=== PATIENT | female | born 1960 | race Caucasian/White ===

== ENCOUNTER 2018-06-28 09:38 | Outpatient (CLI) | payer BC | END 2018-06-28 09:39 | disposition home or self-care (01) | LOC: DTY/OP 09:38 | PROVIDERS: ATTEND Surgery | DX: E66.01 Morbid (severe) obesity due to excess calories (principal) | CPT/HCPCS: 97802 ==

== ENCOUNTER 2018-09-25 11:00 | Inpatient (IN) | payer BC ==
[2018-09-29 14:48] VITALS: BMI 58.1
[2018-10-04] MEDS ORDERED: Heparin 5,000 UNITS/ML VIAL ONE (06:23)
[2018-10-04] MEDS ORDERED: Bupivacaine/Epinephrine 0.25% 30 ML VIAL ONE ×2 (06:34→06:49)
[2018-10-04] MEDS ORDERED: Fentanyl 250 MCG/5 ML VIAL ONE (06:51)
[2018-10-04] MEDS ORDERED: Famotidine/PF 20 mg/2ml Vial ONE (06:51)
[2018-10-04] MEDS ORDERED: Midazolam HCl 2 mg/2 ml Vial ONE (07:23)
[2018-10-04] MEDS ORDERED: Morphine Sulfate 2 MG/ML SYRINGE SLOW IVP PRN (08:30)
[2018-10-04] MEDS ORDERED: Promethazine HCl 25 MG/ML VIAL IM PRN ×3 (08:30→09:08)
[2018-10-04] MEDS ORDERED: PACU-Morphine 4MG/ML VIAL SLOW IVP PRN (08:30)
[2018-10-04] MEDS ORDERED: Meperidine HCl/PF 25 MG/ML VIAL SLOW IVP PRN (08:30)
[2018-10-04] MEDS ORDERED: HYDROmorphone 2 MG/ML VIAL SLOW IVP PRN (08:30)
[2018-10-04] MEDS ORDERED: Promethazine HCl 25 MG/ML VIAL SLOW IVP PRN (08:30)
[2018-10-04] MEDS ORDERED: Ondansetron HCl/PF 4 MG/2 ML Vial IVP PRN (08:30)
[2018-10-04] MEDS ORDERED: HYDROmorphone 2 MG/ML VIAL ONE (08:37)
[2018-10-04] MEDS ORDERED: Fentanyl 100 MCG/2 ML VIAL ONE (08:37)
[2018-10-04] MEDS ORDERED: Promethazine HCl 25 MG/ML VIAL ONE ×2 (08:37→10:31)
[2018-10-04] MEDS ORDERED: Insulin Regular 300 UNITS/3 ML VIAL SC PRN (08:39)
[2018-10-04] MEDS ORDERED: Dextrose 50% Abboject 50 ML SYRINGE SLOW IVP PRN (08:39)
[2018-10-04] MEDS ORDERED: Ondansetron PF 4 MG/2 ML Vial IVP PRN ×2 (08:39→09:08)
[2018-10-04] MEDS ORDERED: Hydrocodone-Acetamin 15 ML UDCUP PO PRN (08:39)
[2018-10-04] MEDS ORDERED: diphenhydrAMINE 50 MG/ML VIAL IVP PRN ×2 (08:39→09:08)
[2018-10-04] MEDS ORDERED: Dextrose 5% in Water 1,000 ML IV PRN (08:39)
[2018-10-04] MEDS ORDERED: hydrALAZINE 20 MG/ML VIAL SLOW IVP PRN (08:39)
[2018-10-04] MEDS ORDERED: Naloxone HCl 0.4 mg/ml Vial IV PRN (09:08)
[2018-10-04] MEDS ORDERED: Ketorolac Tromethamine 30 MG/ML VIAL IVP PRN (09:08)
[2018-10-04] MEDS ORDERED: diphenhydrAMINE 25 MG CAP PO PRN (09:08)
[2018-10-04] MEDS ORDERED: fentaNYL Citrate/PF 2,000 MCG in Sodium Chloride 0.9% 60 ML IV PRN (09:08)
[2018-10-04] MEDS ORDERED: Zolpidem Tartrate 5 MG TAB PO PRN (09:08)
[2018-10-04] MEDS ORDERED: diphenhydrAMINE 50 MG/ML VIAL IM PRN (09:08)
[2018-10-04] MEDS ORDERED: Communication Order-Pharmacy FS SCH (09:15)
[2018-10-04] MEDS ORDERED: Sodium Chloride 0.9% (PF) 10 ML VIAL FS PRN (10:02)
[2018-10-04] MEDS: 1/2 NS w/KCL 20 mEq 1,000 ML IV SCH ×2 (12:26→21:00)
[2018-10-04] MEDS: Pantoprazole 40 MG VIAL IVP SCH (12:26)
--- NOTE | 2018-10-04 14:08 | HP ---
CHIEF COMPLAINT: Morbid obesity. HISTORY OF PRESENT ILLNESS: The patient is a 58-year-old female, who has been overweight for many years that she has attempted multiple weight loss programs without success. She is here for sleeve gastrectomy. PAST MEDICAL HISTORY: Significant for sleep apnea, hypertension. PAST SURGICAL HISTORY: She has had hysterectomy and knee surgery. MEDICATIONS: Include 1. Potassium. 2. Metformin. 3. Atorvastatin. 4. Lasix. FAMILY HISTORY: Both parents are . Mother had diabetes. SOCIAL HISTORY: Former smoker. No current tobacco. No alcohol. ALLERGIES: SHE HAS AN ALLERGY TO VICODIN. PHYSICAL EXAMINATION: VITAL SIGNS: Height 67, weight 365, body mass index 57.16, well-developed, well-nourished female, in no apparent distress. Alert and orient x3. HEENT: Pupils equal, round, and reactive. Extraocular motor intact. Pharynx clear. NECK: Supple. No thyroid masses. No carotid bruits. LUNGS: Clear. HEART: Regular rate and rhythm. NEUROLOGICAL: No focal defect. BREASTS: There are no palpable breast masses. No lymphadenopathy. There is some submammary inflammation. ABDOMEN: Soft, nontender. Good bowel sounds. No palpable masses or hernias. BACK: No spinal tenderness. She has a deep midline crease. EXTREMITIES: Warm, well perfused with 1+ edema. ASSESSMENT: Morbid obesity with comorbidities. PLAN: Laparoscopic sleeve gastrectomy. CONSENT: Discussed planned procedure as well as risk of bleeding, infection, injury to esophagus, spleen, loops of bowel, need to open, leakage from staple line. She understands and gives informed consent. Job ID: [id number]
[2018-10-04] MEDS ORDERED: PROPOFOL 200 MG/20 ML VIAL ONE (15:12)
[2018-10-04] MEDS ORDERED: Ondansetron PF 4 MG/2 ML Vial ONE (15:12)
[2018-10-04] MEDS ORDERED: Lidocaine 1% PF 5 ML VIAL ONE (15:12)
[2018-10-04] MEDS ORDERED: Glycopyrrolate 0.2 MG/ML 5 ML SYRINGE ONE (15:12)
[2018-10-04] MEDS ORDERED: Rocuronium Bromide 10 MG/ML (10ML VIAL) ONE (15:12)
[2018-10-04] MEDS ORDERED: Dexamethasone 20 MG/5 ML VIAL ONE (15:12)
[2018-10-04] MEDS: CEFAZOLIN 2 GM in Premix Bag 1 BAG IVPB SCH ×2 (15:42→23:46)
[2018-10-05 05:06] LABS: #Lymphocytes 1.1 thou/uL (1.20-3.40); #Monocytes 0.8 thou/uL (0.11-0.59); #Neutrophils 6.3 thou/uL (1.40-6.50); %Basophils 0.5 % (0.0-1.0); %Eosinophils 0.1 % (0.0-10.0); %Lymphocytes 13.5 % (21.0-51.0); %Monocytes 9.7 % (0.0-10.0); %Neutrophils 76.2 % (42.0-75.0); Hemoglobin 13.5 g/dL (12.0-16.0); Mean Corpuscular HGB CONC 32.9 g/dL (32.0-36.0); Mean Corpuscular Hemoglobin 29.7 pg (27.0-31.0); Mean Corpuscular Volume 90.5 fL (78.0-98.0); Mean Platelet Volume 8.8 fL (7.4-10.4); Platelet Count 165 thou/uL (130-400); RBC Distribution Width 12.9 % (11.5-14.5); Red Blood Cell (RBC) Count 4.55 mill/uL (4.20-5.40); White Blood Cell (WBC) Count 8.2 thou/uL (4.8-10.8)
[2018-10-05 05:27] LABS: Anion Gap 12 mmol/L (10-20); BUN (Urea Nitrogen) 10 mg/dL (9.8-20.1); Calc. Creatinine Clearance 185 mL/min (70-130); Calcium 9.5 mg/dL (7.8-10.44); Carbon Dioxide 24 mmol/L (22-29); Chloride 107 mmol/L (98-107); Estimated GFR-MDRD 67; Glucose 110 mg/dL (70-105); Sodium 138 mmol/L (136-145)
[2018-10-05] MEDS: 1/2 NS w/KCL 20 mEq 1,000 ML IV SCH (05:35)
[2018-10-05] MEDS ORDERED: Enoxaparin Sodium 40 MG/0.4 ML SYRINGE SC SCH ×2 (06:00→09:00)
--- NOTE | 2018-10-05 09:38 | RAD ---
Exam: UPPER GI WITH NO AIR: HISTORY: Postop gastric bypass with vertical sleeve Fluoroscopy time 0.3 minutes. Dose 82.59 mGy FINDINGS: Contrast media passed through the postoperative stomach. No evidence for extravasation. IMPRESSION: Unremarkable post gastric sleeve study. Transcribed Date/Time: 10/05/2018 9:45 AM
--- NOTE | 2018-10-05 09:54 | OP ---
DATE OF PROCEDURE: 10/04/2018 PREOPERATIVE DIAGNOSIS: Morbid obesity. PROCEDURES PERFORMED: Laparoscopic sleeve gastrectomy, esophagogastroscopy. INDICATIONS: This is a 58-year-old female, morbidly obese, who has attempted multiple weight loss programs without success. FINDINGS: A 38-Citizen [place] bougie used. DESCRIPTION OF PROCEDURE: After informed consent was obtained, the patient was taken to the operating room, given general endotracheal anesthesia, placed in the supine position. Abdomen was prepped and draped in usual fashion. Local anesthesia infiltrated subcutaneously and deep, and a 12 mm incision was performed approximately 8 inches above the xiphoid slightly to the left. Veress needle inserted. Drop test performed. Pneumoperitoneum was created to a volume of 2 L of carbon dioxide. Utilizing a bladeless 12 mm trocar and 0-degree laparoscope, direct visual entry in the abdominal cavity was performed. Pneumoperitoneum was then created to a pressure of 15 mmHg and the patient was placed in steep reverse Trendelenburg position. Beth liver retractor inserted and left lobe of liver retracted superiorly. The pylorus was identified, and a 12 mm port placed on the right beneath it and two 12s placed in the left subcostal. The omentum was taken off the greater curvature 5 cm from the pylorus utilizing the LigaSure. Short gastrics divided with LigaSure. Left crura defined with LigaSure. A 38-Citizen [place] bougie was inserted and directed into the antrum. The linear 60 mm green load stapler used to divide the antrum to the bougie, a gold load used along the bougie, and a series of blues through the angle of His. Intraoperative endoscopy was then performed. The video endoscope inserted under direct vision and advanced into the sleeve. The staple line inspected. There was no bleeding. Staple line then tested by inflating the new stomach with pressurized air under water, there was no air leak. Stomach decompressed. Scope removed. The remnants of stomach removed from the abdomen through the left lateral port site. The fascia was closed with 0 Vicryl suture and the GraNee needle. Trocars and retractors removed. Skin closed with interrupted 4-0 Rapide. Dermabond applied. The patient tolerated the procedure well and was transferred to Recovery in good condition. Sponge and needle count verified correct x2. Job ID: [id number]
[2018-10-05] MEDS: Pantoprazole 40 MG VIAL IVP SCH (09:55)
[2018-10-05] MEDS ORDERED: Acetaminophen/Codeine 120-12MG/5 ML UDCUP PO PRN (10:43)
[2018-10-05 11:58] VITALS: BP 144/87; TEMP 98.1
--- NOTE | 2018-10-06 08:48 | DIS ---
DATE OF ADMISSION: 10/04/2018 DATE OF DISCHARGE: 10/05/2018 DISCHARGE DIAGNOSIS: Morbid obesity. PROCEDURES DURING ADMISSION: Laparoscopic sleeve gastrectomy, intraoperative esophagogastroscopy, and postoperative Gastrografin swallow. HOSPITAL COURSE: The patient was admitted, taken to the operating room, where she underwent sleeve gastrectomy. Postoperatively, she has done well. Her x-ray was fine. She is tolerating liquids well. She is discharged home on Tylenol with codeine and Zofran. She will follow up with me in 2 weeks. Job ID: [id number]
[2018-10-06] MEDS ORDERED: Enoxaparin Sodium 40 MG/0.4 ML SYRINGE SC SCH (09:00)
== END 2018-10-05 13:55 | disposition home or self-care (01) | DRG 621 ==
LOC: SURG A 10-04 06:01 → SURG B 10-04 10:25
PROVIDERS: ADMIT Surgery; ATTEND Surgery
PROC: 0DB64Z3 Excision of Stomach, Percutaneous Endoscopic Approach, Vertical (ICD-10-PCS; principal; 2018-10-04)
PROC: 0DJ08ZZ Inspection of Upper Intestinal Tract, Via Natural or Artificial Opening Endoscopic (ICD-10-PCS; 2018-10-04)
DX: E66.01 Morbid (severe) obesity due to excess calories (principal); I10 Essential (primary) hypertension; G47.30 Sleep apnea, unspecified; Z68.43 Body mass index [BMI] 50.0-59.9, adult; Z79.84 Long term (current) use of oral hypoglycemic drugs; Z87.891 Personal history of nicotine dependence; Z88.5 Allergy status to narcotic agent; Z98.890 Other specified postprocedural states
CPT/HCPCS: 36415; 36416; 74241; 80048; 85025; 88307; 88312; 94760; C9113; J0131; J0690; J1100; J1170; J1644; J1650; J2001; J2250; J2405; J2550; J2704; J3010; J3480; J3490; S0028

== ENCOUNTER 2018-09-29 13:58 | Outpatient (CLI) | payer BC ==
[2018-09-29 15:30] LABS: #Eosinphils 0.2 thou/uL (0.0-0.7); #Lymphocytes 1.9 thou/uL (1.20-3.40); #Monocytes 0.5 thou/uL (0.11-0.59); #Neutrophils 2.9 thou/uL (1.40-6.50); %Basophils 0.8 % (0.0-1.0); %Eosinophils 2.9 % (0.0-10.0); %Lymphocytes 34.3 % (21.0-51.0); %Monocytes 9.3 % (0.0-10.0); %Neutrophils 52.7 % (42.0-75.0); Hemoglobin 15.1 g/dL (12.0-16.0); Mean Corpuscular HGB CONC 32.3 g/dL (32.0-36.0); Mean Corpuscular Hemoglobin 29.2 pg (27.0-31.0); Mean Corpuscular Volume 90.5 fL (78.0-98.0); Mean Platelet Volume 9.1 fL (7.4-10.4); Platelet Count 148 thou/uL (130-400); RBC Distribution Width 12.8 % (11.5-14.5); Red Blood Cell (RBC) Count 5.17 mill/uL (4.20-5.40); White Blood Cell (WBC) Count 5.6 thou/uL (4.8-10.8)
--- NOTE | 2018-09-29 15:31 | RAD ---
XR Chest Pa Lat STANDARD History: [Preop] Comparison: None. Findings: Lungs are clear. No pneumothorax or effusion. Cardiac silhouette and mediastinal contours a re within normal limits. No acute osseous abnormality. Impression: No acute intrathoracic abnormality.
[2018-09-29 15:45] LABS: Hemoglobin A1c 5.6 % (4.0-6.0)
[2018-09-29 15:50] LABS: ALT (SGPT) 31 U/L (8-55); AST (SGOT) 29 U/L (5-34); Albumin 4.5 g/dL (3.5-5.0); Alkaline Phosphatase 140 U/L (40-150); Anion Gap 11 mmol/L (10-20); BUN (Urea Nitrogen) 21 mg/dL (9.8-20.1); Bilirubin, Direct 0.2 mg/dL (0.1-0.3); Bilirubin, Total 0.5 mg/dL (0.2-1.2); Calc. Creatinine Clearance 0 mL/min (70-130); Calcium 10.3 mg/dL (7.8-10.44); Carbon Dioxide 30 mmol/L (22-29); Chloride 104 mmol/L (98-107); Estimated GFR-MDRD 54; Glucose 91 mg/dL (70-105); Potassium 4.4 mmol/L (3.5-5.1); Protein, Total 7.5 g/dL (6.0-8.3); Sodium 141 mmol/L (136-145)
== END 2018-09-29 13:59 | disposition home or self-care (01) ==
LOC: LABBT 13:58
PROVIDERS: ATTEND Surgery
DX: Z01.818 Encounter for other preprocedural examination (principal); E66.01 Morbid (severe) obesity due to excess calories
CPT/HCPCS: 71046; 80053; 80076; 83036; 85025